=== PATIENT | female | born 1935 | race Caucasian/White ===

== ENCOUNTER 2016-12-19 05:36 | Emergency (ER) | payer OTHER ==
[~2016-12-19] VITALS: Ht 165.1 cm; Wt 79.7 kg
[~2016-12-19 05:36] MED LIST: AMBIEN10 MG PO; ASPIRIN81 M1 PO; Aspirin E.C. PO; CENTRUM SILVER1 EAC3 PO; Centrum Silver,Certa PO; LIDODERM 5% P1 PATCH TD; NAPROXEN500 MG PO; NEURONTIN100 MG PO; NEXIUM40 MG PO; NORCO 5/3251 TABLET PO; PRILOSEC20 MG PO; TYLENOL WITH C1 EACH PO; ULTRAM50 MG PO; ZEGERID OTC 201 EACH; ZOFRAN4 MG PO; ZOLOFT100 MG PO; Zegerid PO; Zocor PO; Zoloft PO
[2016-12-19 06:50] LABS: HEMATOCRIT 38.8 % (36.0-46.0); MCH 28.5 PG (29.0-34.0); MCHC 34.8 G/DL (30.0-36.0); MEAN PLAT.VOLUME 9.4 uM^3 (9.5-12.4); PLATELET COUNT 205 K/uL (156-360); RBC DIS.WIDTH-CV 12.6 % (11.8-14.6); RBC DIS.WIDTH-SD 36.9 % (39-53); RED BLOOD COUNT 4.73 M/uL (3.80-5.20); WHITE BLOOD COUNT 7.3 K/uL (4.1-10.2)
[2016-12-19 07:00] LABS: CHLORIDE 105 mEq/L (99-109); POTASSIUM 4.6 mEq/L (3.7-5.4); SODIUM 138 mEq/L (136-147)
[2016-12-19 07:01] LABS: GLUCOSE 106 mg/dL (70-99)
[2016-12-19 07:03] LABS: ANION GAP 10 MEQ/L (2-14)
[2016-12-19 07:05] LABS: GFR ESTIMATE (CALCULATED) > 59 mL/min/
[2016-12-19 07:06] LABS: UREA NITROGEN (BUN) 21 mg/dL (9-23)
[2016-12-19 07:52] LABS: ADD MIUA? YES; BILIRUBIN NEGATIVE; BLOOD TRACE; GLUCOSE (STRIP) NEGATIVE; KETONES NEGATIVE; LEUKOCYTES NEGATIVE; NITRITE NEGATIVE; PROTEIN (STRIP) NEGATIVE; SPECIFIC GRAVITY 1.012 (1.000-1.030); UROBILINOGEN 0.2 MG/DL (0.2-1.0)
[2016-12-19 07:53] LABS: COLOR LT YELLOW ((YELLOW))
[2016-12-19 08:07] LABS: BACTERIA NONE SEEN /HPF; CASTS NONE SEEN /LPF; CRYSTALS NONE SEEN; EPITHELIAL CELLS RARE /HPF; MUCUS NONE SEEN /LPF; PATHOLOGICAL CAST NONE SEEN; RED BLOOD CELLS 0-5 /HPF (0-5); SMALL ROUND CELL NONE SEEN; UCUL ADDED? NO; WHITE BLOOD CELLS 0-5 /HPF (0-5); YEAST-LIKE CELL NONE SEEN
[2016-12-19] MEDS ORDERED: TYLENOL WITH C1 EACH PO (08:34)
[2016-12-19 08:48] VITALS: BP 123/94
[2016-12-19] MEDS ORDERED: VALIUM5 MG PO (23:48)
[2016-12-19] MEDS ORDERED: MEDROL DOSEPAK4 MG PO (23:48)
== END 2016-12-19 08:48 | disposition home or self-care (01) ==
LOC: EME 05:36
DX: G25.81 Restless legs syndrome (principal); M54.30 Sciatica, unspecified side; Z88.2 Allergy status to sulfonamides; Z91.041 Radiographic dye allergy status
CPT/HCPCS: 80048; 81003; 85027; 99281; 99284; J1885

== ENCOUNTER 2016-12-19 20:11 | Emergency (ER) | payer OTHER ==
[~2016-12-19] VITALS: Ht 165.1 cm; Wt 80.2 kg
[2016-12-19] MEDS ORDERED: VALIUM5 MG PO (23:48)
[2016-12-19] MEDS ORDERED: MEDROL DOSEPAK4 MG PO (23:48)
[2016-12-20 00:03] VITALS: BP 141/84
== END 2016-12-20 00:07 | disposition home or self-care (01) ==
LOC: EME 20:11
DX: M54.5 Low back pain (principal); M62.838 Other muscle spasm; Z88.1 Allergy status to other antibiotic agents; Z88.2 Allergy status to sulfonamides; Z91.041 Radiographic dye allergy status
CPT/HCPCS: 99281; 99284; J1170

== ENCOUNTER 2017-02-20 20:44 | Emergency (ER) | payer OTHER ==
[~2017-02-20] VITALS: Ht 165.1 cm; Wt 78.7 kg
[~2017-02-20 20:44] MED LIST changes: +MEDROL DOSEPAK4 MG PO; +VALIUM5 MG PO
[2017-02-20 23:38] LABS: HEMATOCRIT 36.9 % (36.0-46.0); MCH 28.2 PG (29.0-34.0); MCHC 34.1 G/DL (30.0-36.0); MCV 82.6 FL (83-99); MEAN PLAT.VOLUME 9.8 uM^3 (9.5-12.4); PLATELET COUNT 215 K/uL (156-360); RBC DIS.WIDTH-CV 12.4 % (11.8-14.6); RBC DIS.WIDTH-SD 37.7 % (39-53); RED BLOOD COUNT 4.47 M/uL (3.80-5.20); WHITE BLOOD COUNT 10.7 K/uL (4.1-10.2)
[2017-02-20 23:47] LABS: CHLORIDE 105 mEq/L (99-109); POTASSIUM 3.7 mEq/L (3.7-5.4); SODIUM 138 mEq/L (136-147)
[2017-02-20 23:49] LABS: GLUCOSE 153 mg/dL (70-99)
[2017-02-20 23:50] LABS: ANION GAP 11 MEQ/L (2-14)
[2017-02-20 23:51] LABS: TOTAL BILIRUBIN 0.5 mg/dL (0.0-1.0)
[2017-02-20 23:53] LABS: ALKALINE PHOSPHATASE 65 IU/L (3-129); GFR ESTIMATE (CALCULATED) > 59 mL/min/
[2017-02-20 23:54] LABS: UREA NITROGEN (BUN) 24 mg/dL (9-23)
[2017-02-20 23:56] LABS: LIPASE 33 U/L (1.0-51.0)
[2017-02-21] MEDS ORDERED: MIRALAX17 GM PO (01:52)
[2017-02-21 02:01] LABS: ADD MIUA? YES; BILIRUBIN NEGATIVE; BLOOD NEGATIVE; COLOR YELLOW ((YELLOW)); GLUCOSE (STRIP) NEGATIVE; KETONES NEGATIVE; LEUKOCYTES MODERATE; NITRITE NEGATIVE; PROTEIN (STRIP) NEGATIVE; UROBILINOGEN 0.2 MG/DL (0.2-1.0)
[2017-02-21 02:06] LABS: BACTERIA NONE SEEN /HPF; EPITHELIAL CELLS RARE /HPF; MUCUS NONE SEEN /LPF; RED BLOOD CELLS 0-5 /HPF (0-5); UCUL ADDED? NO
[2017-02-21] MEDS ORDERED: MACROBID100 MG PO (02:26)
[2017-02-21 02:53] VITALS: BP 144/79
== END 2017-02-21 02:54 | disposition home or self-care (01) ==
LOC: EME 20:44
PROVIDERS: Emergency Medicine
DX: R10.9 Unspecified abdominal pain (principal); K59.00 Constipation, unspecified; N30.90 Cystitis, unspecified without hematuria; Z88.1 Allergy status to other antibiotic agents; Z88.2 Allergy status to sulfonamides; Z88.8 Allergy status to other drugs, medicaments and biological substances; Z91.041 Radiographic dye allergy status
CPT/HCPCS: 74177; 80053; 81003; 83690; 85027; 99281; 99284; J1885

== ENCOUNTER 2017-06-28 19:12 | Emergency (ER) | payer OTHER ==
[~2017-06-28] VITALS: Ht 165.1 cm; Wt 78.7 kg
[~2017-06-28 19:12] MED LIST changes: +MACROBID100 MG PO; +MIRALAX17 GM PO
[2017-06-28] MEDS ORDERED: NORCO 5/3251 TABLET PO (21:44)
[2017-06-28 22:45] VITALS: BP 128/74
== END 2017-06-28 22:35 | disposition home or self-care (01) ==
LOC: EME 19:12
DX: M54.41 Lumbago with sciatica, right side (principal); Z86.73 Personal history of transient ischemic attack (TIA), and cerebral infarction without residual deficits
CPT/HCPCS: 73502; 93971; 99281; 99284; J3010